=== PATIENT | female | born 1945 | race Caucasian/White ===

== ENCOUNTER → 2017-07-09 | Day surgery (SDC) | payer MEDICARE, OTHER ==
[~2017-07-09] MED LIST: BUPIVACAINE HCL 0.5 % INJ/PF 30 ML SDV ONE; METHYLPREDNISOLONE ACETATE INJ 40 MG/1 ML ML ONE
--- NOTE | 2017-07-09 15:35 | RADIOLOGY REPORT (SQ) ---
EXAM DESCRIPTION: INJECT/ASPIR HIP/SHLDR/KNEE; FLUORO/NEEDLE PLACEMENT COMPLETED DATE/TIME: 07/09/2017 2:32 pm REASON FOR STUDY: UNILATERAL PRIMARY OSTEOARTHRITIS, RIGHT HIP M16.11 UNILATERAL PRIMARY OSTEOARTHR ITIS, RIGHT HIP COMPARISON: None. FLUOROSCOPY TIME: 0.3 minutes 2 digital radiographic images saved to PACS. LIMITATIONS: None. PROCEDURE: SITE OF INJECTION: Right hip LOCALIZING CONTRAST TYPE AND DOSE: 0.5 mL Omnipaque 300 MEDICATION TYPE AND DOSE: 80 mg of Depo-Medrol, 6 mL of 0.5% bupivacaine Using local anesthesia and sterile technique with fluoroscopic guidance, a 22 gauge spinal needle was advanced into the joint. Iodinated contrast was injected to verify intraarticular placement. This w as followed by therapeutic injection of the indicated medications. The needle was removed. There we re no immediate complications. Preprocedure pain level: 7/10. Postprocedure pain level: /10. IMPRESSION: THERAPEUTIC INJECTION OF THE right hip JOINT ABOVE. COMMENT: Patient medication list reviewed: Yes- Quality ID# [id number]:Eligible professional attests to doc umenting in the medical record they obtained, updated, or reviewed the patient's current medications. . Quality ID 145: Final reports for procedures using fluoroscopy that document radiation exposure adrianne jane, or exposure time and number of fluorographic images (if radiation exposure indices are not avail able) TECHNICAL DOCUMENTATION: JOB ID: [id number] [employer]- All Rights Reserved Reading location - IP/workstation name: [email or web address]
--- NOTE | 2017-07-09 15:35 | RADIOLOGY REPORT (SQ) ---
EXAM DESCRIPTION: INJECT/ASPIR HIP/SHLDR/KNEE; FLUORO/NEEDLE PLACEMENT COMPLETED DATE/TIME: 07/09/2017 2:32 pm REASON FOR STUDY: UNILATERAL PRIMARY OSTEOARTHRITIS, RIGHT HIP M16.11 UNILATERAL PRIMARY OSTEOARTHR ITIS, RIGHT HIP COMPARISON: None. FLUOROSCOPY TIME: 0.3 minutes 2 digital radiographic images saved to PACS. LIMITATIONS: None. PROCEDURE: SITE OF INJECTION: Right hip LOCALIZING CONTRAST TYPE AND DOSE: 0.5 mL Omnipaque 300 MEDICATION TYPE AND DOSE: 80 mg of Depo-Medrol, 6 mL of 0.5% bupivacaine Using local anesthesia and sterile technique with fluoroscopic guidance, a 22 gauge spinal needle was advanced into the joint. Iodinated contrast was injected to verify intraarticular placement. This w as followed by therapeutic injection of the indicated medications. The needle was removed. There we re no immediate complications. Preprocedure pain level: 7/10. Postprocedure pain level: /10. IMPRESSION: THERAPEUTIC INJECTION OF THE right hip JOINT ABOVE. COMMENT: Patient medication list reviewed: Yes- Quality ID# [id number]:Eligible professional attests to doc umenting in the medical record they obtained, updated, or reviewed the patient's current medications. . Quality ID 145: Final reports for procedures using fluoroscopy that document radiation exposure adrianne jane, or exposure time and number of fluorographic images (if radiation exposure indices are not avail able) TECHNICAL DOCUMENTATION: JOB ID: [id number] [employer]- All Rights Reserved Reading location - IP/workstation name: [email or web address]
== END ==
LOC: RAD 13:25
PROVIDERS: ATTEND Orthopaedic Surgery
DX: M16.11 Unilateral primary osteoarthritis, right hip (principal)
CPT/HCPCS: 20610; 77002; J3490; J1020

== ENCOUNTER 2017-07-29 11:01 | Day surgery (SDC) | payer MEDICARE, OTHER ==
--- NOTE | 2017-07-22 10:04 | RADIOLOGY REPORT (SQ) ---
EXAM DESCRIPTION: CHEST PA/LATERAL COMPLETED DATE/TIME: 07/22/2017 9:49 am REASON FOR STUDY: PRE OP COMPARISON: Two-view chest 06/09/2012, 07/18/2009 EXAM PARAMETERS: NUMBER OF VIEWS: two views TECHNIQUE: Digital Frontal and Lateral radiographic views of the chest acquired. RADIATION DOSE: NA LIMITATIONS: none FINDINGS: LUNGS AND PLEURA: No opacities, masses or pneumothorax. No pleural effusion. MEDIASTINUM AND HILAR STRUCTURES: No masses or contour abnormalities. HEART AND VASCULAR STRUCTURES: Heart normal size. No evidence for failure. BONES: No acute findings. HARDWARE: None in the chest. OTHER: No other significant finding. IMPRESSION: NO SIGNIFICANT RADIOGRAPHIC FINDING IN THE CHEST. TECHNICAL DOCUMENTATION: JOB ID: [id number] [email or web address]- All Rights Reserved Reading location - IP/workstation name: [email or web address]
[2017-07-22 10:14] LABS: ABSOLUTE BASOPHILS # (AUTO) 0.1 10^3/uL (0.0-0.2); ABSOLUTE EOSINOPHILS # (AUTO) 0.3 10^3/uL (0.0-0.6); ABSOLUTE MONOCYTES (AUTO) 1.2 10^3/uL (0.1-1.4); ABSOLUTE NEUT (AUTO) 6.9 10^3/uL (1.7-8.2); BASOPHILS % (AUTO) 0.9 % (0-2); EOSINOPHILS % (AUTO) 2.7 % (0-6); HEMATOCRIT 41.2 % (36.0-47.0); HEMOGLOBIN 13.4 g/dL (12.0-15.5); LYMPHOCYTES % (AUTO) 31.8 % (13-45); MEAN CORPUSCULAR HEMOGLOBIN 29.1 pg (27.0-33.4); MEAN CORPUSCULAR HGB CONC 32.6 g/dL (32.0-36.0); MEAN CORPUSCULAR VOLUME 89 fl (80-97); MONOCYTES % (AUTO) 9.7 % (3-13); PLATELET COUNT 304 10^3/uL (150-450); RED BLOOD COUNT 4.63 10^6/uL (3.72-5.28); RED CELL DISTRIBUTION WIDTH 13.4 % (11.5-14.0); SEGMENTED NEUTROPHILS % (AUTO) 54.9 % (42-78); TOTAL CELLS COUNTED % (AUTO) 100 %; WHITE BLOOD COUNT 12.6 10^3/uL (4.0-10.5)
[2017-07-22 10:26] LABS: APPEARANCE,URINE SLIGHTLY-CLOUDY; BILIRUBIN,URINE NEGATIVE (NEGATIVE); COLOR,URINE YELLOW; GLUCOSE, URINE NEGATIVE (NEGATIVE); KETONES,URINE NEGATIVE (NEGATIVE); LEUKOCYTE ESTERASE,URINE SMALL (NEGATIVE); NITRITE,URINE NEGATIVE (NEGATIVE); PROTEIN,URINE NEGATIVE (NEGATIVE); URINE SPECIFIC GRAVITY 1.018; UROBILINOGEN,URINE NEGATIVE mg/dL (<2.0)
--- NOTE | 2017-07-22 10:42 | EKG REPORT ---
SEVERITY:- NORMAL ECG - SINUS RHYTHM : Confirmed by: Betty Concepcion 22-Jul-2017 10:41:57
[2017-07-22 10:54] LABS: ANION GAP 10 (5-19); BLOOD UREA NITROGEN 23 mg/dL (7-20); CALCIUM 9.7 mg/dL (8.4-10.2); CARBON DIOXIDE 30 mmol/L (22-30); CHLORIDE 104 mmol/L (98-107); GLUCOSE 100 mg/dL (75-110); POTASSIUM 4.5 mmol/L (3.6-5.0); SODIUM 143.7 mmol/L (137-145)
[~2017-07-29 11:01] MED LIST changes: +CEFAZOLIN SODIUM 2 GM in NORMAL SALINE 100 ML IV PRN; +LACTATED RINGERS 1000 ML IV PRN; +LIDOCAINE 0.5% INJ-PF (5 MG/ML) 50 ML SDV SUBCUT PRN
[2017-07-29] MEDS ORDERED: CEFAZOLIN 2 GM/D5W RTU 2 GM/50 ML RTUPB IV ONE (11:23)
[2017-07-29] MEDS ORDERED: FENTANYL CITRATE INJ/PF 100 MCG/2 ML AMPUL ONE (12:51)
[2017-07-29] MEDS ORDERED: ONDANSETRON HCL INJ/PF 4 MG/2 ML SDV ONE (12:52)
[2017-07-29] MEDS ORDERED: EPHEDRINE SULFATE INJ 50 MG/1 ML AMPULE ONE (12:52)
[2017-07-29] MEDS ORDERED: PROPOFOL INJ 200 MG/20 ML VIAL IV ONE (12:52)
[2017-07-29] MEDS ORDERED: MIDAZOLAM 2 MG/2 ML INJ ONE (12:52)
[2017-07-29] MEDS ORDERED: BUPIVACAINE HCL 0.5 % INJ/PF 30 ML SDV ONE (12:59)
[2017-07-29] MEDS ORDERED: MEPERIDINE HCL/PF INJ 25 MG/1 ML DISP.SYRIN IV PRN (13:29)
[2017-07-29] MEDS ORDERED: FENTANYL CITRATE INJ/PF 100 MCG/2 ML AMPUL IV PRN ×3 (13:29)
[2017-07-29] MEDS ORDERED: DIPHENHYDRAMINE HCL 50 MG/ML VIAL IV PRN (13:29)
--- NOTE | 2017-07-29 14:13 | Operative Report ---
Operative Report DATE OF SURGERY: 07/29/17 PREOPERATIVE DIAGNOSIS: Right recurrent carpal tunnel syndrome. Right cubital tunnel syndrome POSTOPERATIVE DIAGNOSIS: Same OPERATION: #1 Open Carpal Tunl. release with placement of nerve wrap. #2 in situ cubital tunnel release SURGEON: MEAGAN GOMEZ 1ST METAL CONTROL WORKER: VIRIDIANA PACHECO - Required for retractor placement and closure. ANESTHESIA: GA COMPLICATIONS: None ESTIMATED BLOOD LOSS: Minimal PROCEDURE: Indication for above procedure: 72-year-old female with numbness and tingling throughout her digits. Patient has history of previous carpal tunnel release years ago. Over the past year she has developed increasing numbness and tingling in her digits specifically ring and small finger but also thumb index and middle fingers well. She states the pain awakens her at night. We attempted conservative measures without long- term resolution of patient's symptoms. At that point decision was made to proceed with operative treatment. Procedure In Detail: Patient was seen and evaluated in the preoperative holding area. The RIGHT upper extremity was initialized and marked. Patient received 2g of Ancef IV for bacterial prophylaxis. Patient was taken back to the operative room where transferred to the operative table and placed under general anesthesia. Once they were adequately anesthetized and a nonsterile tourniquet was placed on the upper extremity. A surgical team debriefing was performed ensuring all instrumentation was available, the surgical procedure was discussed with possible concerns reviewed. The upper extremity was prepped with chlorhexidine and alcohol and draped in a sterile fashion. A timeout was done identifying correct patient, procedure and extremity everyone in attendance agree with this and verbalized no concerns. The extremity was exsanguinated the tourniquet was inflated to 250 mmHg. A longitudinal skin incision was made centered over the cubital tunnel. Careful dissection was done through the overlying soft tissues any peripheral vasculature was carefully coagulated with bipolar cautery. The branches of the medial antebrachial cutaneous nerve were identified and protected throughout the entirety of the case. Once within the confines of the cubital tunnel the ulnar nerve was identified at the proximal aspect of the wound. At this level I carefully released a medial portion of the triceps and the medial intermuscular septum freeing the ulnar nerve proximally of any overlying soft tissue compression. I then continued to track the ulnar nerve distally releasing Lewis's fascia. At the level of the FCU aponeurosis between the 2 heads of the FCU muscle. The fascia was released once again relieving any external compression from the ulnar nerve distally past the level of the first motor branch. I then freed up the nerve posteriorly ensuring there is no remaining soft tissue bands causing compression. During dissection of the nerve careful attention was directed at avoiding disruption of the ulnar nerve blood supply. Elbow range of motion was then done from full flexion to full extension with full flexion there was no evidence of anterior subluxation of the ulnar nerve from the groove. The wound was copiously irrigated with normal saline. Any peripheral veins were coagulated with bipolar cautery. Subcutaneous tissues closed with 4-0 Monocryl suture. Skin was closed with subcuticular 4-0 Monocryl reinforced with Dermabond and Steri-Strips. Patient's previous carpal tunnel incision was utilized and extended proximally and distally by 1 cm. Blunt dissection was performed proximally identifying the normal median nerve. The median nerve was then tracked distally there was evidence of scarring along the medial portion of the transverse carpal ligament with mild compression at the wrist flexion crease. There was evidence of significant flexor Ita synovitis throughout the carpal canal. Thus a tenosynovectomy was performed. The median nerve was released distally to the adipose protecting the superficial palmar arch. The branches to the first, second and third webspace along with the recurrent motor branch were identified and released from any external compression. The nerve was freed circumferentially to allow placement of the Axogen nerve wrap. A 10 x 30 mm Axogen nerve wrap was placed around the nerve at the level of the wrist flexion crease. This was secured with horizontal mattress 6-0 nylon suture. The wound was then copiously irrigated with normal saline. Tourniquet was deflated. Any peripheral bleeding was controlled with bipolar cautery into the wound was dry. Skin was closed with 4-0 nylon suture. Xeroform 4 x 4's were placed including a well-padded volar resting splint. Sponge counts, instrument counts, needle counts counts were correct. Patient was then awoken from anesthesia. Transferred from the operating room table to the operating room stretcher. There was no intraoperative complications patient tolerated procedure well stable to PACU. Postoperative plan: Patient will follow-up in the office as scheduled which point we will proceed with wound check. Patient will be placed in a removable wrist brace at follow- up visit.
[2017-07-29] MEDS ORDERED: OXYCODONE-ACETAMINOPHEN 5-325 MG TABLET PO PRN (14:34)
[2017-07-29] MEDS ORDERED: MORPHINE SULFATE 10 MG/ML INJ IV PRN (14:34)
[2017-07-29] MEDS ORDERED: ONDANSETRON HCL INJ/PF 4 MG/2 ML SDV IV PRN (14:34)
[2017-07-29] MEDS ORDERED: RINGERS SOLUTION,LACTATED 1,000 ML IV PRN (14:34)
--- NOTE | 2017-07-29 14:34 | Discharge Summary ---
Discharge Summary (SDC) - Discharge Final Diagnosis: Right carpal tunnel syndrome, right cubital tunnel syndrome Date of Surgery: 07/29/17 Discharge Date: 07/29/17 Condition: Good Treatment or Instructions: Schedule Follow Up w/ Dr. Hector Bruno @ [facility] for Surgery to be seen in 10-14 days or as scheduled [place]: [place]: [place]: Ice and elevate Keep splint clean/dry/intact. If your fingers become numb please unwrap the Fritz wrap but leave the splint in place, if the sensation does not return within 30 minutes please return to the emergency department. May begin finger range of motion attempting to make full fist. Please use ibuprofen (Motrin or Advil) 600-800 mg every 8 hours as needed for pain or fever DO NOT TAKE w/ TORADOL may use once TORADOL complete. You may also use acetaminophen (Tylenol) 1000 mg every 4-6 hours as needed for pain or fever. Please be aware that many medications contain acetaminophen, do not exceed a total of 1000 mg of acetaminophen every 6 hours. If ibuprofen and acetaminophen are not sufficient for your pain you may take the Percocet/Bourbon. Please be aware that the Percocet/Bourbon does contain Tylenol. Stool softener of choice when on pain medication. Prescriptions: Hydrocodone/Acetaminophen [Hydrocodon-Acetaminophen 5-325] 1 each PO Q6 #30 tablet Referrals: SAUL OCHOA MD [Primary Care Provider] - Discharge Diet: As Tolerated, Regular Respiratory Treatments at Home: Deep Breathing/Coughing Discharge Activity: No Lifting Over 10 Pounds, No Lifting/Push/Pulling Home Care Assistance: None Needed Report the Following to Your Physician Immediately: Shortness of Breath, Fever over 101 Degrees, Unusual Bleeding, Redness, Swelling, Warmth, Drainage-Yellow
[2017-07-29 16:33] VITALS: BP 146/76
== END 2017-07-29 16:20 | disposition home or self-care (01) ==
LOC: OROUT 11:01
PROVIDERS: ATTEND Orthopaedic Surgery
PROC: 01N50ZZ Release Median Nerve, Open Approach (ICD-10-PCS; principal; 2017-07-29 13:15)
PROC: 01N40ZZ Release Ulnar Nerve, Open Approach (ICD-10-PCS; 2017-07-29 13:15)
DX: G56.21 Lesion of ulnar nerve, right upper limb (principal); G56.02 Carpal tunnel syndrome, left upper limb; M79.641 Pain in right hand; M79.642 Pain in left hand; J44.9 Chronic obstructive pulmonary disease, unspecified; M19.90 Unspecified osteoarthritis, unspecified site; E03.9 Hypothyroidism, unspecified; Z79.51 Long term (current) use of inhaled steroids; Z79.82 Long term (current) use of aspirin; Z79.899 Other long term (current) drug therapy; Z87.891 Personal history of nicotine dependence; Z91.040 Latex allergy status
CPT/HCPCS: 93005; 36415 ×2; 84132; 85025; 80048; 81001; 71046; 93010; 64721; 64718; J2250; J3490 ×3; J3010; J1020; A9270; J2405; J2704; J0690; 1810

== ENCOUNTER 2018-07-03 16:55 | Emergency (ER) | payer MEDICARE, OTHER ==
--- NOTE | 2018-07-03 21:57 | ER Document Report ---
ED Medical Screen (RME) - General Chief Complaint: Shortness Of Breath Stated Complaint: SWOLLEN ANKLE/FEET Time Seen by Provider: 07/03/18 21:55 Primary Care Provider: SAUL OCHOA MD [Primary Care Provider] - Follow up in 3-5 days Mode of Arrival: Ambulatory Information source: Patient Notes: PT PRESENTS WITH BILATERAL PITTING EDEMA FOR 3 DAYS, DENIES HX OF CHF, REPORTS SHE HAS BEEN TOLD SHE DRINKS TO [facility]. UNABLE TO VOID FOR 3 HOURS AND TOOK 2 WATER PILLS I have greeted and performed a rapid initial assessment of this patient. A comprehensive ED assessment and evaluation of the patient, analysis of test results and completion of the medical decision making process will be conducted by additional ED providers. TRAVEL OUTSIDE OF THE [place] IN LAST 30 DAYS: No - Related Data Allergies/Adverse Reactions: No Known Allergies Allergy (Unverified 07/03/18 17:27) Past Medical History - Past Medical History Cardiac Medical History: Reports: Hx Coronary Artery Disease - HIGH CHOLESTEROL, Hx Hypertension Denies: Hx Heart Attack Pulmonary Medical History: Reports: Hx Asthma, Hx Bronchitis, Hx COPD Denies: Hx Pneumonia Neurological Medical History: Denies: Hx Cerebrovascular Accident, Hx Seizures Musculoskeltal Medical History: Reports Hx Arthritis Past Surgical History: Reports: Hx Hysterectomy - Immunizations Hx Diphtheria, Pertussis, Tetanus Vaccination: Yes - UNSURE WHEN History of Influenza Vaccine for 01/2017 - 06/2017 Season: Yes Influenza Administration Date for 01/2017 - 06/2017 Season: 01/19/17 Physical Exam - Vital signs Vitals: Temp Pulse Resp BP Pulse Ox 98.3 F 51 L 14 120/59 L 95 07/03/18 17:32 07/03/18 17:32 07/03/18 17:32 07/03/18 17:32 07/03/18 17:32 Course - Vital Signs Vital signs: Temp Pulse Resp BP Pulse Ox 98.3 F 51 L 23 H 131/76 H 94 07/04/18 00:45 07/03/18 17:32 07/04/18 00:45 07/04/18 00:45 07/04/18 00:45 - Laboratory Result Diagrams: 07/03/18 22:05 07/03/18 22:05 Laboratory results interpreted by me: 07/03/18 07/03/18 22:05 22:05 WBC 14.2 H RDW 14.7 H Plt Count 511 H BUN 26 H Creatinine 1.73 H Est GFR ( Amer) 35 L Est GFR (Non-Af Amer) 29 L ALT 6 L Doctor's Discharge - Discharge Clinical Impression: Leg edema Condition: Good Disposition: HOME, SELF-CARE Additional Instructions: Please take 1 furosemide a day. Please wear compression hose. Please keep your legs elevated when sitting or laying down. Place your legs on pillows to help elevate them. Please follow-up with your doctor this coming week. Have him recheck your kidney function to make sure that it is not worsening. Please return to ER immediately if your swelling in your legs continues to worsen despite doing the above conditions, he has difficulty breathing, chest pain, or if you feel unwell. Referrals: SAUL OCHOA MD [Primary Care Provider] - Follow up in 3-5 days
[2018-07-03 22:29] LABS: ABSOLUTE BASOPHILS # (AUTO) 0.1 10^3/uL (0.0-0.2); ABSOLUTE EOSINOPHILS # (AUTO) 0.2 10^3/uL (0.0-0.6); ABSOLUTE LYMPHOCYTES (AUTO) 4.5 10^3/uL (0.5-4.7); ABSOLUTE MONOCYTES (AUTO) 1.2 10^3/uL (0.1-1.4); ABSOLUTE NEUT (AUTO) 8.2 10^3/uL (1.7-8.2); BASOPHILS % (AUTO) 0.5 % (0-2); EOSINOPHILS % (AUTO) 1.6 % (0-6); HEMATOCRIT 39.3 % (36.0-47.0); HEMOGLOBIN 13.1 g/dL (12.0-15.5); LYMPHOCYTES % (AUTO) 31.8 % (13-45); MEAN CORPUSCULAR HEMOGLOBIN 30.8 pg (27.0-33.4); MEAN CORPUSCULAR HGB CONC 33.4 g/dL (32.0-36.0); MEAN CORPUSCULAR VOLUME 92 fl (80-97); MONOCYTES % (AUTO) 8.6 % (3-13); PLATELET COUNT 511 10^3/uL (150-450); RED BLOOD COUNT 4.27 10^6/uL (3.72-5.28); RED CELL DISTRIBUTION WIDTH 14.7 % (11.5-14.0); SEGMENTED NEUTROPHILS % (AUTO) 57.5 % (42-78); TOTAL CELLS COUNTED % (AUTO) 100 %; WHITE BLOOD COUNT 14.2 10^3/uL (4.0-10.5)
[2018-07-03 22:40] LABS: ALANINE AMINOTRANSFERASE 6 U/L (9-52); ALBUMIN 4.5 g/dL (3.5-5.0); ALKALINE PHOSPHATASE 122 U/L (38-126); ANION GAP 16 (5-19); ASPARTATE AMINO TRANSFERASE 18 U/L (14-36); BILIRUBIN,DIRECT 0.4 mg/dL (0.0-0.4); BILIRUBIN,TOTAL 0.7 mg/dL (0.2-1.3); BLOOD UREA NITROGEN 26 mg/dL (7-20); CARBON DIOXIDE 23 mmol/L (22-30); CHLORIDE 101 mmol/L (98-107); GLUCOSE 99 mg/dL (75-110); POTASSIUM 4.4 mmol/L (3.6-5.0); SODIUM 140.4 mmol/L (137-145); TOTAL PROTEIN 7.6 g/dL (6.3-8.2)
--- NOTE | 2018-07-03 23:20 | ER Document Report ---
ED General - General Chief Complaint: Shortness Of Breath Stated Complaint: SWOLLEN ANKLE/FEET Time Seen by Provider: 07/03/18 21:55 Primary Care Provider: SAUL OCHOA MD [Primary Care Provider] - Follow up in 3-5 days Mode of Arrival: Ambulatory Notes: Patient is a pleasant 73-year-old female who resents with increasing leg edema over the last week. Patient says she saw Dr. zaldivar told her to take to water pills of her edema continues to increase. She said today she took 2 water pills but has not seen much results and therefore came to the ER. She says she she does not have any significant difficulty breathing however she has some chronic difficulty breathing due to her history of COPD. She also recently is getting over pneumonia and is on her last day of antibiotics for pneumonia. No fevers in the last couple days. No vomiting. Edema is mainly in the lower extremitie s. She does have compression hose but does not wear them. She has not been keeping her legs elevated on pillows. No history of MT. No chest pain. TRAVEL OUTSIDE OF THE [place] IN LAST 30 DAYS: No - Related Data Allergies/Adverse Reactions: No Known Allergies Allergy (Unverified 07/03/18 17:27) Past Medical History - General Information source: Patient - Social History Smoking Status: Never Smoker Frequency of alcohol use: None Drug Abuse: None Family History: Reviewed & Not Pertinent Patient has suicidal ideation: No Patient has homicidal ideation: No - Past Medical History Cardiac Medical History: Reports: Hx Coronary Artery Disease - HIGH CHOLESTEROL, Hx Hypertension Denies: Hx Heart Attack Pulmonary Medical History: Reports: Hx Asthma, Hx Bronchitis, Hx COPD Denies: Hx Pneumonia Neurological Medical History: Denies: Hx Cerebrovascular Accident, Hx Seizures Renal/ Medical History: Denies: Hx Peritoneal Dialysis Musculoskeletal Medical History: Reports Hx Arthritis Past Surgical History: Reports: Hx Hysterectomy - Immunizations Hx Diphtheria, Pertussis, Tetanus Vaccination: Yes - UNSURE WHEN Hx Pneumococcal Vaccination: 01/19/17 Review of Systems - Review of Systems Notes: My Normal Review Basic REVIEW OF SYSTEMS: CONSTITUTIONAL : Denies fever, chills, or sweats. Recent pneumonia EENT: Denies eye, ear, throat, or mouth pain or symptoms. Denies nasal or sinus congestion. CARDIOVASCULAR: Denies chest pain. RESPIRATORY: Mild intermittent cough. GASTROINTESTINAL: Denies abdominal pain. Denies nausea, vomiting, or diarrhea. GENITOURINARY: No dysuria MUSCULOSKELETAL: Leg edema SKIN: Denies rash or skin lesions. NEUROLOGICAL: Denies altered mental status or loss of consciousness. Denies headache. Denies weakness or paralysis or loss of use of either side. Denies problems with gait or speech. Denies sensory or motor loss. ALL OTHER SYSTEMS REVIEWED AND NEGATIVE. Physical Exam - Vital signs Vitals: Temp Pulse Resp BP Pulse Ox 98.3 F 51 L 14 120/59 L 95 07/03/18 17:32 07/03/18 17:32 07/03/18 17:32 07/03/18 17:32 07/03/18 17:32 - Notes Notes: General Appearance: Well nourished, alert, cooperative, no acute distress, no obvious discomfort. Ill-appearing. Vitals: reviewed, See vital signs table. Head: no swelling or tenderness to the head Eyes: PERRL, EOMI, Conjuctiva clear Mouth: No decreasd moisture Neck: Supple, no neck tenderness, No thyromegaly Lungs: No wheezing, No rales, No rhonci, No accessory muscle use, good air exchange bilaterally. Heart: Normal rate, Regular rythm, No murmur, no rub Abdomen: Normal BS, soft, No rigidity, No abdominal tenderness, No guarding, no rebound, no abdominal masses, no organomegaly Extremities: good pulses in all extremities, no swelling or tenderness in the extremities, 1+ bilateral lower extremity edema. Skin: warm, dry, appropriate color, no rash Neuro: speech clear, oriented x 3, normal affect, responds appropriately to questions. Course - Re-evaluation Re-evalutation: 07/04/18 07:12 BNP she has no chest pain. Lung fernandez are clear. Her creatinine is a little bit elevated. Suspect is related to her increasing her Lasix. I talked to patient length and informed her that she probably go back to her original dose of Lasix and have her wear compression hose. The only edema she has just 1+ edema in her lower extremities and feet. I informed her that compression as well push fluid back into the vasculature so that he can return to the kidneys and the Lasix can actually work to help diurese off the excess fluid. I also encouraged her to keep her legs elevated when in bed or sitting down. I encouraged her return to ER immediately if she has chest pain, difficulty breathing, worsening edema, or if she feels unwell. She is to follow-up with her primary care doctor this week for reevaluation. Patient agrees with plan and will be discharged home. Dictation of this chart was performed using voice recognition software; therefore, there may be some unintended grammatical errors. - Vital Signs Vital signs: Temp Pulse Resp BP Pulse Ox 98.3 F 51 L 23 H 131/76 H 94 07/04/18 00:45 07/03/18 17:32 07/04/18 00:45 07/04/18 00:45 07/04/18 00:45 - Laboratory Result Diagrams: 07/03/18 22:05 07/03/18 22:05 Laboratory results interpreted by me: 07/03/18 07/03/18 22:05 22:05 WBC 14.2 H RDW 14.7 H Plt Count 511 H BUN 26 H Creatinine 1.73 H Est GFR ( Amer) 35 L Est GFR (Non-Af Amer) 29 L ALT 6 L Discharge - Discharge Clinical Impression: Leg edema Condition: Good Disposition: HOME, SELF-CARE Additional Instructions: Please take 1 furosemide a day. Please wear compression hose. Please keep your legs elevated when sitting or laying down. Place your legs on pillows to help elevate them. Please follow-up with your doctor this coming week. Have him r echeck your kidney function to make sure that it is not worsening. Please return to ER immediately if your swelling in your legs continues to worsen despite doing the above conditions, he has difficulty breathing, chest pain, or if you feel unwell. Referrals: SAUL OCHOA MD [Primary Care Provider] - Follow up in 3-5 days
--- NOTE | 2018-07-04 00:17 | RADIOLOGY REPORT (SQ) ---
EXAM DESCRIPTION: XR CHEST 1 VIEW COMPLETED DATE/TME: 07/03/2018 23:17 CLINICAL HISTORY: 73 years, Female, dyspnea Comparison: July 22, 2017 FINDINGS: No focal lung consolidation. The lung volumes are decreased. No pleural effusion. No pneumothorax. Cardiac and mediastinal silhouette is unremarkable. No acute osseous abnormality. Soft tissues are unremarkable. IMPRESSION: No acute findings. No focal lung consolidation.
[2018-07-04 00:48] VITALS: BP 131/76
== END 2018-07-04 00:48 | disposition home or self-care (01) ==
LOC: ER 16:55
DX: R60.9 Edema, unspecified (principal); R06.02 Shortness of breath; E78.00 Pure hypercholesterolemia, unspecified; I10 Essential (primary) hypertension; J44.9 Chronic obstructive pulmonary disease, unspecified; Z90.710 Acquired absence of both cervix and uterus
CPT/HCPCS: 36415; 71045; 80053; 83880; 85025; 99284

== ENCOUNTER 2019-11-03 15:04 | Emergency (ER) | payer MEDICARE, OTHER ==
--- NOTE | 2019-11-03 15:27 | ER Document Report ---
ED Medical Screen (RME) - General Chief Complaint: Weakness Stated Complaint: WEAKNESS,DIZZINESS Time Seen by Provider: 11/03/19 15:16 Primary Care Provider: BONG VILLARREAL MD [Primary Care Provider] - Follow up as needed TRAVEL OUTSIDE OF THE [place] IN LAST 30 DAYS: No - HPI Notes: 11/03/19 15:23 74-year-old female with a history of COPD, emphysema, hypertension presents to the emergency room from a doctor's office for bradycardia of heart rate in the 30s with suspected possible third-degree heart block. Patient reports that she has had dizziness, weakness, fatigue for the last week. She went to her doctor's office today to discuss an orthopedic issue when they did initial vitals, her heart rate was in the 30s. The provider came into the room and was concerned about third-degree heart block, vies her to go by ambulance but she came by private vehicle. Patient denies any cardiac issues, denies any arrhythmias, ablations, blockages. Patient states she is never had a low heart rate before. Denies any new medications foods or travel. Patient states she had inner ear issues for a while so she contributed this to her dizziness. Denies any chest pain, worsening shortness of breath ( she states she does have shortness of breath due to her COPD and emphysema), nausea vomiting diarrhea, abdominal pain, fever chills I have greeted and performed a rapid initial assessment of this patient. A comprehensive ED assessment and evaluation of the patient, analysis of test results and completion of the medical decision making process will be conducted by additional ED providers. PHYSICAL EXAMINATION: GENERAL: Well-appearing, well-nourished and in no acute distress. HEAD: Atraumatic, normocephalic. NECK: Normal range of motion CV: Bradycardia LUNGS: No respiratory distress Musculoskeletal: Normal range of motion NEUROLOGICAL: Normal speech. SKIN: Warm, Dry, normal turgor, no rashes or lesions noted. - Related Data Allergies/Adverse Reactions: No Known Allergies Allergy (Verified 11/03/19 15:19) Past Medical History - Past Medical History Cardiac Medical History: Reports: Hx Coronary Artery Disease - HIGH CHOLESTEROL, Hx Hypertension Denies: Hx Heart Attack Pulmonary Medical History: Reports: Hx Asthma, Hx Bronchitis, Hx COPD Denies: Hx Pneumonia Neurological Medical History: Denies: Hx Cerebrovascular Accident, Hx Seizures Renal/ Medical History: Denies: Hx Peritoneal Dialysis Musculoskeltal Medical History: Reports Hx Arthritis Past Surgical History: Reports: Hx Hysterectomy - Immunizations Hx Diphtheria, Pertussis, Tetanus Vaccination: Yes - UNSURE WHEN Physical Exam - Vital signs Vitals: Temp Pulse Resp BP Pulse Ox 98.4 F 34 L 14 122/64 97 11/03/19 15:12 11/03/19 15:12 11/03/19 15:12 11/03/19 15:12 11/03/19 15:12 Course - Vital Signs Vital signs: Temp Pulse Resp BP Pulse Ox 98.4 F 34 L 14 122/64 97 11/03/19 15:12 11/03/19 15:12 11/03/19 15:12 11/03/19 15:12 11/03/19 15:12 Doctor's Discharge - Discharge Referrals: BONG VILLARREAL MD [Primary Care Provider] - Follow up as needed
[2019-11-03 15:55] LABS: ABSOLUTE BASOPHILS # (AUTO) 0.1 10^3/uL (0.0-0.2); ABSOLUTE EOSINOPHILS # (AUTO) 0.4 10^3/uL (0.0-0.6); ABSOLUTE LYMPHOCYTES (AUTO) 3.1 10^3/uL (0.5-4.7); ABSOLUTE MONOCYTES (AUTO) 1.1 10^3/uL (0.1-1.4); ABSOLUTE NEUT (AUTO) 6.8 10^3/uL (1.7-8.2); BASOPHILS % (AUTO) 0.7 % (0-2); EOSINOPHILS % (AUTO) 3.7 % (0-6); HEMATOCRIT 38.1 % (36.0-47.0); HEMOGLOBIN 12.5 g/dL (12.0-15.5); INTERNATIONAL RATION (INR) 1.06; LYMPHOCYTES % (AUTO) 27.1 % (13-45); MEAN CORPUSCULAR HEMOGLOBIN 28.7 pg (27.0-33.4); MEAN CORPUSCULAR HGB CONC 32.9 g/dL (32.0-36.0); MEAN CORPUSCULAR VOLUME 87 fl (80-97); MONOCYTES % (AUTO) 9.6 % (3-13); PLATELET COUNT 374 10^3/uL (150-450); PROTHROMBIN TIME 13.8 SEC (11.4-15.4); RED BLOOD COUNT 4.36 10^6/uL (3.72-5.28); RED CELL DISTRIBUTION WIDTH 14.9 % (11.5-14.0); SEGMENTED NEUTROPHILS % (AUTO) 58.9 % (42-78); TOTAL CELLS COUNTED % (AUTO) 100 %; WHITE BLOOD COUNT 11.6 10^3/uL (4.0-10.5)
--- NOTE | 2019-11-03 16:04 | RADIOLOGY REPORT (SQ) ---
EXAM DESCRIPTION: CHEST SINGLE VIEW IMAGES COMPLETED DATE/TIME: 11/03/2019 3:55 pm REASON FOR STUDY: bradycardia, weakness, dizziness COMPARISON: 07/03/2018 EXAM PARAMETERS: NUMBER OF VIEWS: One view. TECHNIQUE: Single frontal radiographic view of the chest acquired. RADIATION DOSE: NA LIMITATIONS: None. FINDINGS: LUNGS AND PLEURA: No opacities, masses or pneumothorax. No pleural effusion. MEDIASTINUM AND HILAR STRUCTURES: No masses. Contour normal. HEART AND VASCULAR STRUCTURES: Heart normal in size. Normal vasculature. BONES: No acute findings. HARDWARE: None in the chest. OTHER: No other significant finding. IMPRESSION: NO ACUTE RADIOGRAPHIC FINDING IN THE CHEST. TECHNICAL DOCUMENTATION: JOB ID: [id number] 2010 [employer]- All Rights Reserved Reading location - IP/workstation name: [email or web address]
[2019-11-03 16:11] LABS: ALBUMIN 3.8 g/dL (3.5-5.0); ALKALINE PHOSPHATASE 102 U/L (38-126); ANION GAP 5 (5-19); ASPARTATE AMINO TRANSFERASE 18 U/L (14-36); BILIRUBIN,DIRECT 0.1 mg/dL (0.0-0.4); BILIRUBIN,TOTAL 0.5 mg/dL (0.2-1.3); BLOOD UREA NITROGEN 31 mg/dL (7-20); CALCIUM 9.2 mg/dL (8.4-10.2); CARBON DIOXIDE 26 mmol/L (22-30); CHLORIDE 106 mmol/L (98-107); CREATINE KINASE 64 U/L (30-135); GLUCOSE 98 mg/dL (75-110); PHOSPHORUS 4.2 mg/dL (2.5-4.5); POTASSIUM 4.8 mmol/L (3.6-5.0); TOTAL PROTEIN 7.3 g/dL (6.3-8.2)
[2019-11-03 16:22] LABS: CREATINE KINASE MB 1.11 ng/mL (<4.55); TROPONIN I < 0.012 ng/mL
[2019-11-03] MEDS ORDERED: MORPHINE SULFATE 10 MG/ML INJ IV ONE (16:36)
--- NOTE | 2019-11-03 16:46 | ER Document Report ---
ED Cardiac - General Chief Complaint: Irregular Pulse Stated Complaint: WEAKNESS,DIZZINESS Time Seen by Provider: 11/03/19 15:16 Primary Care Provider: BONG VILLARREAL MD [ASSOCIATE] - Follow up as needed Information source: Patient TRAVEL OUTSIDE OF THE [place] IN LAST 30 DAYS: No - HPI Notes: Patient is sent from her pain medicine office secondary to having an irregular heartbeat and some weakness dizziness. She states the weakness and dizziness be en going on for the last week. It is worse if she exerts her self better with rest. It is a mild to moderate in intensity. Is been intermittent. She states she has had no chest pain. She has had some mild shortness of breath but states that she has chronic COPD. No COVID virus exposures. No cough or congestion that is new. She denies chest pain. She does have some left arm pain but this is chronic and what she sees pain management for. She denies any previous history of coronary artery disease. - Related Data Allergies/Adverse Reactions: No Known Allergies Allergy (Verified 11/03/19 15:19) Past Medical History - General Information source: Patient - Social History Smoking Status: Former Smoker Frequency of alcohol use: None Drug Abuse: None Family History: Reviewed & Not Pertinent Patient has homicidal ideation: No - Past Medical History Cardiac Medical History: Reports: Hx Coronary Artery Disease - HIGH CHOLESTEROL, Hx Hypertension Denies: Hx Heart Attack Pulmonary Medical History: Reports: Hx Asthma, Hx Bronchitis, Hx COPD Denies: Hx Pneumonia Neurological Medical History: Denies: Hx Cerebrovascular Accident, Hx Seizures Renal/ Medical History: Denies: Hx Peritoneal Dialysis Musculoskeletal Medical History: Reports Hx Arthritis Past Surgical History: Reports: Hx Hysterectomy - Immunizations Hx Diphtheria, Pertussis, Tetanus Vaccination: Yes - UNSURE WHEN Hx Pneumococcal Vaccination: 01/19/17 Review of Systems - Review of Systems Constitutional: denies: Chills, Fever Cardiovascular: Dizziness. denies: Chest pain Respiratory: Cough, Short of breath -: Yes All other systems reviewed and negative Physical Exam - Vital signs Vitals: Temp Pulse Resp BP Pulse Ox 98.4 F 34 L 14 122/64 97 11/03/19 15:12 11/03/19 15:12 11/03/19 15:12 11/03/19 15:12 11/03/19 15:12 Interpretation: Bradycardic - General General appearance: Appears well, Alert - HEENT Head: Normocephalic, Atraumatic Eyes: Normal Pupils: PERRL - Respiratory Respiratory status: No respiratory distress Chest status: Nontender Breath sounds: Normal Chest palpation: Normal - Cardiovascular Rhythm: Other - irregular bigeminy and nsr the rhythm's pt is varying between. no third degree block seen. Heart sounds: Normal auscultation Murmur: No - Abdominal Inspection: Normal Distension: No distension Bowel sounds: Normal Tenderness: Nontender Organomegaly: No organomegaly - Back Back: Normal, Nontender - Extremities General upper extremity: Normal inspection, Nontender, Normal color, Normal ROM, Normal temperature General lower extremity: Normal inspection, Nontender, Normal color, Normal ROM, Normal temperature, Normal weight bearing. No: Jose's sign - Neurological Neuro grossly intact: Yes Cognition: Normal Orientation: AAOx4 [place] Coma Scale Eye Opening: Spontaneous [place] Coma Scale Verbal: Oriented [place] Coma Scale Motor: Obeys Commands [place] Coma Scale Total: 15 Speech: Normal Motor strength normal: LUE, RUE, LLE, RLE Sensory: Normal - Psychological Associated symptoms: Normal affect, Normal mood - Skin Skin Temperature: Warm Skin Moisture: Dry Skin Color: Normal Course - Re-evaluation Re-evalutation: 11/03/19 17:01 Patient presents with dizziness and irregular rhythm. She has noticed to vary between sinus rhythm and bigeminy. Nursing notes reviewed and nursing notes stated that third-degree heart block was noticed at triage however have not seen any evidence the patient has third-degree heart block. I did call and discussed the case with the classification officer, Dr. Olmos. He has requested that patient be discharged home and that he will call the patient tomorrow to arrange for a Holter monitor and follow-up appointment. Patient's laboratories and vital signs at this time are normal and stable. I believe this is a reasonable plan. - Vital Signs Vital signs: Temp Pulse Resp BP Pulse Ox 98.4 F 51 L 14 122/64 97 11/03/19 15:12 11/03/19 15:22 11/03/19 15:12 11/03/19 15:12 11/03/19 15:12 - Laboratory Result Diagrams: 11/03/19 15:32 11/03/19 15:32 Laboratory results interpreted by me: 11/03/19 11/03/19 15:32 15:32 WBC 11.6 H RDW 14.9 H BUN 31 H Creatinine 1.28 H Est GFR ( Amer) 49 L Est GFR (MDRD) Non-Af 41 L - Diagnostic Test Radiology reviewed: Image reviewed, Reports reviewed - EKG Interpretation by Me EKG shows normal: Sinus rhythm Rate: Normal - 81 Rhythm: NSR, PVC's - bigem. No: [place]/QRS: No: Right axis deviation, Left axis deviation Discharge - Discharge Clinical Impression: Dizziness, Bigeminy Condition: Stable Disposition: HOME, SELF-CARE Instructions: [facility] ([facility]) Additional Instructions: The classification officer, Dr. Olmos will call you tomorrow to arrange follow up. Referrals: MELIDA OLMOS MD [ACTIVE STAFF] - Follow up tomorrow
[2019-11-03] MEDS ORDERED: NORMAL SALINE 1000 ML 1,000 ML IV ONE (17:16)
[2019-11-03 18:37] VITALS: BP 114/95
--- NOTE | 2019-11-04 13:20 | EKG REPORT ---
SEVERITY:- ABNORMAL ECG - SINUS RHYTHM VENTRICULAR BIGEMINY NONSPECIFIC T ABNORMALITIES, LATERAL LEADS : Confirmed by: Joel Sanchez MD 04-Nov-2019 13:20:11
== END 2019-11-03 18:38 | disposition home or self-care (01) ==
LOC: ER 15:04
DX: R00.8 Other abnormalities of heart beat (principal); I49.3 Ventricular premature depolarization; R42 Dizziness and giddiness; R53.1 Weakness; J44.9 Chronic obstructive pulmonary disease, unspecified; Z87.891 Personal history of nicotine dependence; R05 Cough; R06.02 Shortness of breath; M79.602 Pain in left arm; G89.29 Other chronic pain; I25.10 Atherosclerotic heart disease of native coronary artery without angina pectoris; I10 Essential (primary) hypertension
CPT/HCPCS: 93005; 99284; 96361; 96374; 36415; 82553; 83735; 82550; 84100; 84443; 85025; 85610; 80053; 84484; 71045; 93010; J2270; J7030